=== PATIENT | female | born 1960 | race Two or more races ===

== ENCOUNTER 2016-10-14 19:54 | Inpatient (IN) | payer OTHER ==
[~2016-10-14] VITALS: Ht 160 cm; Wt 83.6 kg
[2016-10-14] VITALS (9 sets, daily range): BP systolic 99–160; BP diastolic 59–73; PULSE 81–102; RESP 13–22; O2SAT 94–100
[~2016-10-14 19:54] MED LIST: AMLO10TA3 PO; ASPI-973 PO; ATEN100T PO; CYCL10TA9 PO; IBUP800T28 PO; LEVO137T2 PO; LIP40 PO; LOSA100T29 PO; METF500T4 PO; Oxycodone Hcl PO; Rocuronium 10 mg/mL 5 mL Inj ONE; Succinylcholine Chloride 20 mg/mL 5 mL Inj ONE
--- NOTE | 2016-10-14 20:03 | ED.REPORT ---
HPI-General Illness Date of Service Oct 14, 2016 ED Provider: Dav Andrade MD Pt is a 56 year old female who presents to the ED with concerns for extensive facial swelling that began around 16:00. She reports difficulty talking and swallowing. Her family member reports her voice sounding different than her baseline. Pt denies taking any new medications, or being exposed to anything that she knows she is allergic to. She reports mild difficulty breathing. Pt reports this happening one other time in the past but never this severe. Nursing Notes Stated Complaint: FACE SWELLING Chief Complaint: Angioedema Nursing Notes Reviewed: Yes General Time Seen by MD: 20:02 Chief Complaint Other (Facial swelling) Hx Obtained From: Patient, Daughter Arrived By: Walk-in Sudden in Onset?: Yes Onset Occurred: Just prior to arrival Symptom Duration: Since onset Location: : Face Quality: Painful Severity: Current: Mild Severity: Maximum: Mild Similar Sx Previous: Yes Past Medical History Ambulatory Status Independent Review of Systems Full Review of Systems Constitutional: Denies: Chills, Fever, Malaise, Weakness - generalized Ears / Nose / Throat: Reports: Throat swelling, Voice change Respiratory: Reports: Shortness of breath, Denies: Wheezing Cardiovascular: Denies: Chest pain, Syncope GI: Denies: Abdominal pain, Nausea, Vomiting Musculoskeletal: Denies: Back pain, Extremity pain, Neck pain Skin: Denies Diaphoresis Allergy / Immune: Reports: Allergic reaction, Anaphylaxis, Hives Neurologic: Denies: Change LOC, Dizziness, Headache, Syncope, Weakness Psychiatric: Denies: Anxiety Complete sys rev & neg: except as marked. Physical Exam Vital Signs Vital Signs Date Time Temp Pulse Resp B/P Pulse Ox O2 Delivery O2 Flow Rate FiO2 10/14/16 21:29 94 10/14/16 21:26 93 22 118/65 100 Mechanical Ventilator 10/14/16 20:43 102 20 160/70 100 Nasal Cannula 2 10/14/16 20:31 93 18 158/73 100 Room Air 10/14/16 20:28 95 13 158/73 100 Nasal Cannula 2 10/14/16 19:56 37.1 95 21 156/59 98 Room Air Initial VS: Reviewed General/Constitutional: Well-developed, Well-nourished Head / Eyes: Atraumatic, Normocephalic, PERRL Neck: Supple, Non-tender, Full range of motion Respiratory: Breath sounds normal, Clear to auscultation, No respiratory distress Cardiovascular: Regular rate & rhythm, Heart sounds normal, Intact distal pulses Abdomen / GI: Soft, Non-tender, No guarding, No rebound, No distention Skin: Warm, Dry, No cyanosis ENT: Mucous membranes moist Marked edema of face and lips Moderate edema of tongue No stridorous Difficulty tolerating secretions Interpretation & Diagnostics Lab Results Interpretation Result Diagram: 10/14/16201410/14/16 2202 Test 10/14/16 20:15 White Blood Count 11.7th/mm3 (3.8-10.1) Red Blood Count 4.99mil/mm3 (3.90-5.20) Hemoglobin 13.4g/dL (12.0-15.6) Hematocrit 40.8% (35.0-46.0) Mean Corpuscular Volume 81.8fL (81-100) Mean Corpuscular Hemoglobin 26.9pg (27.0-35.0) Mean Corpuscular Hemoglobin Concent 32.8% (32.0-37.0) Red Cell Distribution Width 14.2% (12.3-15.4) Platelet Count 293bil/L (150-400) Neutrophils (%) (Auto) 60.9% (40-74) Lymphocytes (%) (Auto) 28.4% (14-46) Monocytes (%) (Auto) 6.0% (4-12) Eosinophils (%) (Auto) 3.8% (0-5) Basophils (%) (Auto) 0.3% (0-3) Hold Purple Top Tube Received (Received) Hold Blue Top Tube Received (Received) Hold [place] Top Tube Received (Received) X-Ray Chest Interpretation Chest Xray Interpretation: IMPRESSION: Bilateral pneumonia, located within the lower lobe on the left than the junction of the middle and upper thirds of the right lung parenchyma. The endotracheal and nasogastric tube positioning appears normal. Dictated by: Pop Ashton M.D. on 10/14/2016 at 21:51 Interpretation / Wet Read by: Interpret - Radiologist Procedures Intubation Intubation Procedure: Anesthesia was at the bedside prior to beginning procedure. Multiple attempts at intubation. Topically numbed with 4% lidocaine jelly. Cords visualized prior to induction with etomidate and succinylcholine. Unable to pass tube on 1st and 2nd attempt. Pt was easy bag mask ventilated, and maintain O2 saturations in the low 90s, during this, she vomited x 2. She was suctioned. Ultimately tubed was passed, visualizing the glottic opening with glide scope, and passing the tube orotracheally over an intubating bronchoscope Time: 20:12 Procedure Performed by: ED physician Consent / Setup / Site Prep: Consent from patient, Time-out performed, Oxygen administered, Pulse oximeter applied, telemetry monitor applied, Hand hygiene observed, Stand sterile technique Patient Position: Sniff position Blade / ET Tube / Route: [place] scope Premedicated: Lidocaine ___ mg Procedural Sedation/Analgesia: Sedation: Etomidate, Analgesia: Fentanyl Neuromuscular Agent: Succinylcholine ET Confirmation: Direct visualization, BS equal, CXR, Rising O2 sat Secured / Marked: Tube marked at ___ cm (23) Complications: Vomiting Post-Procedure: Condition improved, Tolerated procedure well, Patient stable Re-Eval/Medical Decision Med Decision/Clinical Course Pt is a 56 year old female who presents to the ED with concerns for extensive facial swelling that began around 16:00. She reports difficulty talking and swallowing. Her family member reports her voice sounding different than her baseline. Pt denies taking any new medications, or being exposed to anything that she knows she is allergic to. She reports mild difficulty breathing. Pt reports this happening one other time in the past but never this severe. Upon arrival she has marked edema of her face, lips but only mild to moderate edema of her tongue. She was without stridor though does have voice changes and is having difficulty swallowing her secretions. She was immediately placed on continuous cardiac monitoring and pulse oximetry and had good oxygen saturation on room air. She had taken Benadryl prior to arrival and was treated with epinephrine, IV fluids and IV Pepcid as well as steroids. Given the severity of her swelling anesthesia (Dr. Vazquez). We opted to provide topicalization of the oral mucosa using 4% lidocaine gel. There are several attempts she was able to tolerate awake insertion of the kaleidoscope into the oral cavity and we were able to visualize her cords though there was some surrounding edema. Given the progressive nature of her angioedema we opted to induce using etomidate and succinylcholine. Anesthesia was at the bedside and I attempted to intubate her using a 7.t tube which we are unable to pass through the cords due to the extensive edema. We then proceeded to attempt to pass a 6.5 tube, again without success. Patient had momentary transient desaturation to 70% that was easily [id number] ventilated back up to 100% oxygen saturation. At that time her glottic opening was again visualized using the kaleidoscope and we attempted to pass a gum elastic bougie. Due to angle we are unable to insert the bougie. At this time she was again avf-[id number] ventilated though had 2 episodes of emesis requiring suctioning. Again we visualized the glottic opening using kaleidoscope and she was intubated with the assistance of anesthesia using fiberoptic scope and passing a 6.5 endotracheal tube. She had no oxygen desaturation, the tube placement was confirmed by bilateral breath sounds, capynography and CXR. The tube was slightly deep and was pulled back by 1 cm. She was placed on a propofol drip for sedation. CBC and CMP were unremarkable. The patient was admitted to the intensive care unit for further management. Source of Hx: Old records Time of Eval: 21:21 Re-Evaluation/Progress Note: Pt is rechecked, her vitals remain stable. Her daughter is informed of the plan to admit her at this time. She understands and agrees, all questions are addressed. Consultation : Referral / Consult Name: Rey Gudino MD Consulted With: Hospitalist Call Returned at: 21:21 Compliance Review Specialist: Will see patient, Agrees with plan, Accepts admit Counseled Regarding: Diagnosis, Lab results, Need for admission Discharge & Departure Primary Impression: Angioedema Encounter type: initial encounter Qualified Code: T78.3XXA - Angioneurotic edema, initial encounter Additional Impressions: Acute respiratory failure Respiratory failure complication: unspecified whether with hypoxia or hypercapnia Qualified Code: J96.00 - Acute respiratory failure, unspecified whether with hypoxia or hypercapnia Leukocytosis Leukocytosis type: unspecified Qualified Code: D72.829 - Elevated white blood cell count, unspecified Hyperglycemia Disposition: ADMITTED TO HOSPITAL Discharge Condition All VS Reviewed: Yes Condition: Stable Crit Care Except Billable Proc Time Spent: 135-164 minutes Services Performed: Patient management by me, Time spent at bedside, Reviewing test results, Reviewing imaging, Discussing patient care, Documentation in record, Time with fam/surrogate Scribe Attestation Portions of this note were transcribed by Kady Vela. I, Dr. Andrade personally performed the history, physical exam and medical decision-making; I reviewed and confirmed the accuracy of the information in the transcribed note. Signed by: Gricelda Ferguson, 10/14/2016 [Time]. Dav Andrade MD Oct 14, 2016 20:03 CHRISTEN VELA Oct 14, 2016 20:24
[2016-10-14] MEDS ORDERED: Succinylcholine Chloride 20 mg/mL 5 mL Inj IVPUSH ONE (20:10)
[2016-10-14] MEDS ORDERED: Etomidate 2 mg/mL 20 mL Inj IV ONE (20:10)
[2016-10-14] MEDS ORDERED: fentaNYL-PF 50 mCg/mL 2 mL Inj ONE ×2 (20:21→20:25)
[2016-10-14] MEDS ORDERED: Propofol 10,000 mCg/mL 100 mL Inj ONE (20:47)
[2016-10-14] MEDS ORDERED: Lactated Ringer's 1,000 ML IV SCH (21:18)
[2016-10-14] MEDS ORDERED: Alum-Mag Hydrox-Simeth 30 mL Suspension PO PRN (21:25)
[2016-10-14] MEDS ORDERED: Ondansetron 2 mg/mL 2 mL Inj IVPUSH PRN (21:25)
[2016-10-14] MEDS ORDERED: Polyethylene Glycol (PEG) 17 Gm Powder PO PRN (21:25)
[2016-10-14] MEDS ORDERED: Senna-Docusate 8.6-50 mg Tablet PO PRN (21:25)
[2016-10-14] MEDS ORDERED: Acetaminophen IV 1,000 MG in IV Premix 1 EACH IV PRN (21:25)
[2016-10-14 21:28] LABS: BASOPHILS % (AUTO) 0.3 % (0-3); EOSINOPHILS % (AUTO) 3.8 % (0-5); Mean Corpuscular Hemoglobin 26.9 pg (27.0-35.0); Mean Corpuscular Volume 81.8 fL (81-100); NEUTROPHILS % (AUTO) 60.9 % (40-74); Platelet Count 293 bil/L (150-400)
--- NOTE | 2016-10-14 21:53 | DRSVH ---
PROCEDURE: X-RAY CHEST ONE VIEW, PORTABLE ([id number]) INDICATIONS: intubation TECHNIQUE: One view of the chest was acquired. COMPARISON: None. FINDINGS: Surgical changes and devices: Endotracheal tube in normal position, nasogastric tube extends below t he imaging margin at least through the gastric cardia.. Lungs and pleura: No pleural effusions or pneumothorax. Lungs are abnormal with reduced inspiratory volume bilaterally, and linear stranding at the junction of the middle and upper thirds of the right lung and at the lower left lung including behind the heart. Bilateral pneumonia is suspected Mediastinum: Mediastinal contours appear normal. Heart size is normal. Bones and chest wall: No suspicious bony lesions. Overlying soft tissues appear unremarkable. IMPRESSION: Bilateral pneumonia, located within the lower lobe on the left than the junction of the middle and upper thirds of the right lung parenchyma. The endotracheal and nasogastric tube position ing appears normal. Dictated by: Pop Ashton M.D. on 10/14/2016 at 21:51 Approved by: Pop Ashton M.D. on 10/14/2016 at 21:51
[2016-10-14] MEDS ORDERED: MethylprednisoLONE Sodium Succinate 62.5 mg/mL 2 mL Inj IVPUSH ONE (21:55)
--- NOTE | 2016-10-14 21:56 | ABG ---
DateTimeAnalyzed 21:51:00 -_ pH ____7.303 - 7.350 7.450 pCO2 ___49.6__ -mmHg 35.0 45.0 pO2 ___81.7__ -mmHg 69.0 116 HCO3- ___23.8__ -mmol/L 22.0 26.0 ABE ___-2.3__ -mmol/L -2.0 2.0 tHb ___11.4__ -g/dL O2Hb ___92.9__ -% COHb ____0.9__ -% MetHb ____1.1__ -% sO2 ___94.8__ -% FIO2 ___50.0__ -% PEEP ____5.0__ -cmH2O Vt __450.0__ -L Drawn By blf - Date/Time Notified____ 21:56:00 -_ Spontaneous_RR ___21.0__ -b/min A/C ___20.0__ - Oxygen Device 1 VENTILATOR - Notified By BLF - Notified Whom ___DR. LONGSTREET - B 765 -mmHg tO2 ___15.0__ -Vol% Stefan test _Positive -
[2016-10-14] MEDS: 0.9% Sodium Chloride 1,000 ML IV SCH (23:00)
[2016-10-14] MEDS: fentaNYL 2,500 mCg/250 mL 2,500 MCG in IV Premix 1 EACH IV PRN (23:01)
[2016-10-14] MEDS ORDERED: Glucose 40% Oral Gel 15 Gm Tube PO PRN (23:25)
--- NOTE | 2016-10-14 23:28 | PCM.HPMED ---
Subjective Date of Service Oct 14, 2016 Primary Provider: Admitting Physician: Primary Care Physician: Attending Physician: Admit Status: From the Emergency Department, Full Admit, Critical Care Chief Complaint: Facial swelling History of Present Illness: Patricia Liriano is a 56 year old [place]ian female with Diabetes, Dyslipidemia, Hypothyroidism, GERD who presents to [facility] Emergency department with concerns for extensive facial swelling that began around 16:00. She reports difficulty talking and swallowing. Her family member reports her voice sounding different than her baseline. Daughter gave the history. Daughter states the patient every once in awhile would have some swelling due to certain foods that she eats but usually takes a allergy medications and it goes away. Patient took the medications twice, but had no effects. Pt denies taking any new medications, or being exposed to anything that she knows she is allergic to. She reports mild difficulty breathing. Pt reports this happening one other time in the past. Daughter reported patient ate some Oranges and cabbage with some meat inside. Patient has eaten these food before. Patient takes several medications but not on WILLIE inhibitor. Daughter mentioned the patient may have seen a doctor to figure what she is allergic too. Prior prior angioedema requiring hospitalization Patient noted to have respiratory compromise and Dr Andrade recruited the aid of Anesthesia and intubated patient. Patient will be transferred to ICU on the ventilator Review of Systems: unable to be obtained due to sedation while on ventilator support Allergies Coded Allergies: No Known Allergies (Verified Allergy, Unknown, 10/14/16) Home Medications Allergy relief tabs PRN Atorvastatin 40 mg HS Amlodipine 10 mg daily Losartan 100 mg daily Metformin 850 mg bid Levothyroxine 137 mcg daily Atenolol 100 mg daily Aspirin 81 mg daily PMH Transient ischemic attack Acquired hypothyroidism Type 2 Diabetes Dyslipidemia Depression Sleep apnea Hypertension GERD Henderson palsy History of leg thrombosis . Surgical History Breast surgery with no Breast cancer Family History No family history of angioedema Social History Hx Alcohol Use: No Hx Substance Use: No Hx Tobacco Use: No Living Arrangement: with Family (with and daughter) Exam Vital Signs Vital Sign - Last Date Time Temp Pulse Resp B/P Pulse Ox O2 Delivery O2 Flow Rate FiO2 10/14/16 21:29 94 10/14/16 21:26 93 22 118/65 Mechanical Ventilator 10/14/16 20:43 2 10/14/16 19:56 37.1 Exam General: Alert, Oriented X3, Cooperative, No acute Distress Eyes: PERRLA, Scleral Anicteric. swollen Mouth: Mouth Normal, Mucous Membranes Moist/[place]. Lips swollen with ET intact Neck: Supple, no Thyromegaly, trachea central. Chest & Lungs: Clear to auscultation & percussion, No adventitious breath sounds, no crackles, no wheeze Cardiovascular: Normal S1, Normal S2, No Murmurs/Rubs/Gallops, Regular Rate/ Rhythm, (No JVD, no peripheral edema) Pulses: Radial (present and equal), Dorsalis Pedi (present and equal) Abdomen: Soft, Non-tender, Non-distended, Normoactive bowel tones. Musculoskeletal: Unremarkable. Normal range of motion, no swollen or erythematous joints Extremities: No edema, no cyanosis, no clubbing. Skin: No rashes. Warm and dry, no erythematous areas or rashes Neurological: Grossly neurologically intact, sedated Lymphatic: Lymph nodes Cervical and Axillary not palpable Lab and Diagnostics Labs Laboratory Tests Test 10/14/16 20:15 10/14/16 22:02 White Blood Count 11.7th/mm3 (3.8-10.1) Red Blood Count 4.99mil/mm3 (3.90-5.20) Hemoglobin 13.4g/dL (12.0-15.6) Hematocrit 40.8% (35.0-46.0) Mean Corpuscular Volume 81.8fL (81-100) Mean Corpuscular Hemoglobin 26.9pg (27.0-35.0) Mean Corpuscular Hemoglobin Concent 32.8% (32.0-37.0) Red Cell Distribution Width 14.2% (12.3-15.4) Platelet Count 293bil/L (150-400) Neutrophils (%) (Auto) 60.9% (40-74) Lymphocytes (%) (Auto) 28.4% (14-46) Monocytes (%) (Auto) 6.0% (4-12) Eosinophils (%) (Auto) 3.8% (0-5) Basophils (%) (Auto) 0.3% (0-3) Hold Purple Top Tube Received (Received) Hold Blue Top Tube Received (Received) Hold [place] Top Tube Received (Received) Sodium Level 137mEq/L (134-144) Potassium Level 4.3mEq/L (3.5-5.2) Chloride Level 99mEq/L (97-108) Carbon Dioxide Level 23mmol/L (18-29) Blood Urea Nitrogen 17mg/dL (6-24) Creatinine 0.60mg/dL (0.57-1.00) Estimat Glomerular Filtration Rate 148mL/min (>59) Glucose Level 235mg/dL (60-99) Calcium Level 8.8mg/dL (8.5-10.1) Total Bilirubin 0.4mg/dL (0.0-1.2) Aspartate Amino Transf (AST/SGOT) 33U/L (0-50) Alanine Aminotransferase (ALT/SGPT) 32U/L (0-32) Alkaline Phosphatase 70U/L (25-150) Total Protein 7.5g/dL (6.4-8.4) Albumin 4.0g/dL (3.4-5.0) Result Diagram: 10/14/162014 X-Rays, CTs and MRIs X-RAY CHEST ONE VIEW, PORTABLE 10/14/16 IMPRESSION: Bilateral pneumonia, located within the lower lobe on the left than the junction of the middle and upper thirds of the right lung parenchyma. The endotracheal and nasogastric tube positioning appears normal. Dictated by: Pop Ashton M.D. on 10/14/2016 at 21:51 Approved by: Pop Ashton M.D. on 10/14/2016 at 21:51 Assessment & Plan Patricia Liriano is a 56 year old [place]ian female with Diabetes, Dyslipidemia, Hypothyroidism, GERD who presents to [facility] Emergency department with concerns for extensive facial swelling 1. Acute Severe Angioedema with upper airway compromise. Present on admission Etiology of the angioedema is unclear with no exposure to WILLIE inhibitor at this time. Possible the patient has allergic or immunologic angioedema with history of some reactions to some foods. Differential diagnosis includes Acute Urticaria , Anaphylaxis, Drug or food allergies - no prior episode of angioedema - continue steroids: Solu-Medrol 125 mg IV - antihistamine: Benadryl 50 mg IV - remove offending agent - checking C4, MATT, C1 esterase inhibitor levels - recommend allergy testing as outpatient 2. Upper airway compromise due to laryngeal edema. Present on admission Related to complications of the Angioedema - continue ventilator support - Fentanyl and Propofol drip - daily sedation vacation and extubation trials 3. Possible Aspiration pneumonitis. Present on admission Will start antibiotics if patient spikes fever as this indicates pneumonia - monitor closely - Blood cultures 4. Diabetes type 2 - holding Metformin - medium Lispro correction algorithm 5. Hypothyroidism - continue Levothyroxine 137 mcg daily 6. Hypertension - resume Losartan and Atenolol if BP stable tonight - Acetaminophen as needed for mild pain/fever/headache - Bowel regimen as needed - Antiemetic as needed Patient admitted under inpatient status with expected length of stay > 2 midnights for severity of present symptoms, complexities of treatment plan and risk for adverse event . VTE Mechanical Devices: Intermittant Pneumatic CD Resuscitation Status: CPR: Attempt Resuscitation Time spent 1 hour Critical care time spend Rey Gudino MD Oct 14, 2016 21:40
[2016-10-14] MEDS: Propofol Inj 1,000,000 MCG in IV Premix 1 EACH IV SCH (23:40)
[2016-10-15] VITALS (12 sets, daily range): BP systolic 93–131; BP diastolic 47–63; PULSE 58–79; RESP 18–20; O2SAT 96–100
[2016-10-15] MEDS: Chlorhexidine 0.12% 15 mL Oral Solution MT SCH ×6 (00:03→20:06)
--- NOTE | 2016-10-15 00:38 | ABG ---
DateTimeAnalyzed 00:33:00 -_ pH ____7.476 - 7.350 7.450 pCO2 ___31.0__ -mmHg 35.0 45.0 pO2 ___72.9__ -mmHg 69.0 116 HCO3- ___22.6__ -mmol/L 22.0 26.0 ABE ____0.1__ -mmol/L -2.0 2.0 tHb ___11.8__ -g/dL O2Hb ___93.3__ -% COHb ____1.2__ -% MetHb ____1.1__ -% sO2 ___95.5__ -% FIO2 ___40.0__ -% Drawn By LT - Date/Time Notified____ 00:38:00 -_ Notified By LT - Notified Whom RN - B 764 -mmHg tO2 ___15.5__ -Vol% Stefan test _Positive -
[2016-10-15] MEDS ORDERED: CORTISPORIN RIGHT_EAR (01:04)
[2016-10-15] MEDS ORDERED: ATEN100T PO (01:04)
[2016-10-15] MEDS ORDERED: AMLO10TA3 PO (01:04)
[2016-10-15] MEDS ORDERED: LIP40 PO (01:04)
[2016-10-15] MEDS ORDERED: LOSA100T29 PO (01:04)
[2016-10-15] MEDS ORDERED: [UNRECOGNIZED DRUG - CODE] PO (01:04)
[2016-10-15] MEDS ORDERED: ASPI-973 PO (01:04)
[2016-10-15] MEDS ORDERED: METF850T2 PO (01:04)
[2016-10-15] MEDS ORDERED: CLOT45CR7 TOPICAL (01:04)
[2016-10-15] MEDS ORDERED: LEVO137T2 PO (01:04)
--- NOTE | 2016-10-15 01:43 | NUR ---
CCU Admission Admitted patient from ED @ 2235 for angioedema, arrived intubated w/ propofol gtt @ 35 mcg/kg/min, RASS +1, Pt has swelling to face, neck, tongue and bilateral hands, rt hand w/ rashes. Started fentanyl gtt and NS IVF @ 125 cc/hr, MAP>60, sbp 90-100's, frank draining with adequate urine output. Given benadryl 50 mg IV and solumedrol 125 mg IV. MRSA nasal screen sent, daughter at bedside updated of POC
[2016-10-15] MEDS: Propofol Inj 1,000,000 MCG in IV Premix 1 EACH IV SCH ×5 (03:08→21:30)
--- NOTE | 2016-10-15 04:42 | NUR ---
Respiratory RASS -3 resting, on propofol and fentanyl gtt, with any activity RASS +1, pt reaching for ett, bolused with 5cc propofol, sp02 >96%. Face, neck and tongue remain swollen. bilateral soft wrist restraints on
[2016-10-15] MEDS: 0.9% Sodium Chloride 1,000 ML IV SCH ×3 (05:22→20:07)
--- NOTE | 2016-10-15 06:59 | PROCED ---
[address] [address] PROCEDURE NOTE PATIENT: MAI CASPER : 1960 MR#: [id number] ADMIT: 10/14/2016 JOB ID: [id number] DATE OF SERVICE: 10/14/2016 PROCEDURE: Emergent intubation. PREOPERATIVE DIAGNOSIS(ES): Angioedema. POSTOPERATIVE DIAGNOSIS(ES): Angioedema. SURGEON: PROCEDURE IN DETAIL: I was called emergently to the emergency department by my partner, Dr. Denilson Vazquez, who was assisting with an emergency intubation on the patient, who was suffering from angioedema and respiratory failure. When I arrived to the room, Dr. Andrade, the emergency department attending physician, had just given succinylcholine and was looking with the GlideScope. He had a grade 3 view on GlideScope and was unable to pass endotracheal tube under GlideScope visualization. Patient was bag-mask ventilated, and during this time vomited, requiring suction. An additional dose of succinylcholine was given after bag-mask ventilation. Dr. Andrade attempted a second GlideScope intubation in my presence with attempted assistance of passing a bougie through the vocal cords. Unfortunately, the bougie was unable to be passed through the vocal cords. He, again, withdrew GlideScope and bag-mask ventilated. The patient again vomited, requiring suction. Her sats remained in the 90s and high 80s during the second intubation attempt in my presence. For the third attempt, Dr. Andrade placed the GlideScope into the patient's mouth after bag-mask ventilation and a sat of 97%. I then passed a fiberoptic scope under GlideScope visualization through the vocal cords. A 6.5 endotracheal tube was advanced over the fiberoptic scope. The cuff was inflated and the endotracheal tube was attached to colorimetric CO2 detection, confirming appropriate placement. The patient was then sedated per Dr. Andrade's guidelines.
--- NOTE | 2016-10-15 07:00 | PROCED ---
[address] [address] PROCEDURE NOTE PATIENT: MAI CASPER : 1960 MR#: [id number] ADMIT: 10/14/2016 JOB ID: [id number] DATE OF SERVICE: PROCEDURE: Assistance with intubation. POSTOPERATIVE DIAGNOSIS(ES): Angioedema. PREOPERATIVE DIAGNOSIS(ES): Angioedema. SURGEON: PROCEDURE: I was called by Dr. Andrade to assist with intubating a patient with angioedema. Upon entering the room, I saw what appeared to be a morbidly obese woman, with a large neck circumference, resting comfortably. Nasal cannula sats at 97%.The patient was asked to open her mouth and Dr. Andrade assessed her airway with the GlideScope. The patient tolerated this poorly, so I sprayed a total of 8 mL of 4% lidocaine in the oropharynx. I also gave 0.2 mL of glycopyrrolate. I then attempted to place a #3 GlideScope which the patient did not tolerate. Fentanyl 200 mcg were given and this was reattempted, which the patient tolerated much better. I was not able to visualize the patient's vocal cords, although the GlideScope was fully deployed. I then returned with my fiberoptic intubating scope and placed this in the patient's oropharynx, but I was unable to visualize the vocal cords due to significant edema at this point. I left the room to call my partner, Dr. Ugalde, the OB anesthesiologist, to come into the emergency department to help me. Upon returning to the room, Dr. Andrade was attempting to intubate the patient, who at this point was sedated with succinylcholine on board. I observed Dr. Andrade attempt intubation twice, and by the third attempt my partner, Dr. Ugalde, arrived, who offered to use the Fiber Optic scope to intubate the patient while Dr. Andrade deployed the GlideScope. Dr. Ugalde intubated the patient on his first attempt. CO2 was observed. The patient's saturations were in the high 90%. Breath sounds are confirmed bilaterally. MTDD
[2016-10-15 07:29] LABS: BASOPHILS % (AUTO) 0.1 % (0-3); EOSINOPHILS % (AUTO) 0.1 % (0-5); MONOCYTES % (AUTO) 3.3 % (4-12); Mean Corpuscular Hemoglobin 26.9 pg (27.0-35.0); Mean Corpuscular Volume 81.1 fL (81-100); NEUTROPHILS % (AUTO) 86.4 % (40-74); Platelet Count 200 bil/L (150-400)
[2016-10-15] MEDS ORDERED: Insulin LISPRO 300 Unit/3 mL Inj SUBQ SCH (08:00)
[2016-10-15] MEDS ORDERED: Insulin Human REGular Inj 100 UNIT in 0.9% Sodium Chloride-Pha MIX 100 ML IV SCH (08:12)
[2016-10-15] MEDS ORDERED: MethylprednisoLONE Sodium Succinate 40 mg/mL Inj IVPUSH SCH (08:30)
[2016-10-15] MEDS: Dextrose 5% Lactated Ringer's 1,000 ML IV SCH ×2 (09:14→18:03)
[2016-10-15] MEDS: Heparin 5,000 Unit/mL Inj SUBQ SCH ×2 (09:16→16:07)
[2016-10-15] MEDS: MethylprednisoLONE Sodium Succinate 62.5 mg/mL 2 mL Inj IVPUSH SCH ×2 (09:52→16:07)
[2016-10-15] MEDS: Famotidine Inj 20 MG in IV Premix 1 EACH IV SCH ×2 (09:52→20:17)
--- NOTE | 2016-10-15 10:36 | NUR ---
NUTRITION ASSESSMENT Assess: 56 YO F admitted to CCU for angioedema requiring intubation. Possible allergic reaction. PMHX: TIA, hypothyroid, type 2 DM, dyslipidemia, Wolf's palsy, depression, sleep apnea, HTN, GERD. DIET: NPO. LABS: Glu 289 MEDICATIONS: Reviewed. Propofol, Fentanyl, Solu-medrol. GI: No BM noted. SKIN: Wound eval pending. WEIGHT: 87.0 kg, BMI 34.0 kg/m2. Admit wt: 86.6 kg ESTIMATED NEEDS: VENT/BMI Calories: 2465-2819 kcal/day (20-22 kcal/kg BW) Protein: 78-94 g/day (1.5-1.8 g/kg IBW) NUTRITION DIAGNOSIS: 1) Inadequate oral intake related to decreased ability to consume sufficient energy as evidenced by NPO/Vent status. INTERVENTION: 1) If pt remains intubated recommend initiation of nutrition support in the next 24-48 hours. MONITOR/EVALUATE: NPO/Vent status, labs, nutrition support, GI/nutrition status. Follow per high nutrition risk guidelines.
[2016-10-15] MEDS: Insulin Human REGular Inj 100 UNIT in 0.9% Sodium Chloride-Pha MIX 100 ML IV SCH (10:38)
[2016-10-15] MEDS: fentaNYL 2,500 mCg/250 mL 2,500 MCG in IV Premix 1 EACH IV PRN (10:42)
--- NOTE | 2016-10-15 10:48 | CONS ---
[address] [address] CONSULTATION REPORT PATIENT: MAI CASPER : 1960 MR#: [id number] ADMIT: 10/14/2016 JOB ID: [id number] DATE OF SERVICE: 10/15/2016 REASON FOR CONSULTATION: Respiratory failure due to upper airway obstruction. REQUESTING SERVICE: Hospitalist service. HISTORY OF PRESENT ILLNESS: The patient is a morbidly obese, 56-year-old, who presented to [facility] emergency department complaining of several hours of increasing oral and facial edema. She is described as being free of respiratory distress upon presentation, but at some point during her emergency department stay, she required intubation for stabilization of her airway. This appears to have been a difficult procedure, requiring multiple attempts and involving the assistance of Anesthesiology. Her is at the bedside and provides some of the history. The patient has, for two years, had sporadic episodes of mild facial swelling occurring randomly. Most of the episodes appear to have followed some oral intake. Yesterday, she had finished a meal involving citrus and stuffed cabbage leaves with pork. She developed swelling of her lips, tongue and neck. She came to the emergency department and the above events transpired, resulting in her being intubated and admitted to the critical care unit for further care. The patient herself is unable to provide any further information. There have been no new medications prescribed within the last several years. Her use of blsb-yig-nrippdy medications or homeopathic/natural remedies is unclear at this point. There is no family history of anaphylaxis or angioedema. PAST MEDICAL HISTORY: 1. Diabetes. 2. Hypertension. 3. Hypothyroidism. 4. Sleep apnea. 5. History of DVT. 6. Wolf's palsy. 7. History of gastroesophageal reflux disease. 8. History of depression. 9. Dyslipidemia. 10. Prior history of TIA. OUTPATIENT MEDICATIONS: Include: 1. "Allergy medicine". 2. Atorvastatin 40 mg at bedtime. 3. Amlodipine 10 mg p.o. daily. 4. Losartan 100 mg p.o. daily. 5. Metformin 850 mg p.o. b.i.d. 6. Levothyroxine 137 mcg daily. 7. Atenolol 100 mg daily. 8. Aspirin 81 mg daily. SOCIAL HISTORY: She lives with her . FAMILY HISTORY: Noncontributory. REVIEW OF SYSTEMS: Not obtainable as the patient is intubated and sedated. PHYSICAL EXAM: This is a morbidly obese woman who is orotracheally intubated with a 6.5 endotracheal tube. Sedated on ventilation. Her blood pressure is 100/60. Her heart rate is 70. Respirations are 18. O2 saturation is 100% on FiO2 of 0.4. HEENT exam: Gaze appears conjugate. Pupils are equal at 4 mm. Conjunctivae not injected. Sclerae anicteric. The face appears symmetric. She has edema of the lower lip. The tongue does not protrude. Visible oral mucosa is free of ulcerations and exudates. The trachea is midline. There is firm symmetric induration involving the entire submandibular region and bilateral anterior neck. There is no fluctuance or overlying erythema. The chest shows slightly decreased air movement in all shields without wheezes, rale, rhonchi, or egophony. Cardiac exam shows a regular rhythm with normal S1, S2. No murmur, gallop or rub. Abdomen is soft. Bowel tones are absent. There is no obvious tenderness or organomegaly. Extremities: She has trace edema of the dorsum of both hands, right greater than left. Lower extremities show trace edema at both ankles. Pulses are 1+ at both wrists and ankles. Skin: She has confluent erythema over the dorsum of the right hand. There is no truncal rash or other erythema involving other extremities. DATA BASE: Per the electronic medical record, CBC shows a hemoglobin of 11, hematocrit of 33.5, WBC of 9.7, and 200,000 platelets. Eosinophil percent 3.8 on admission, with normal basophils. Chest x-ray shows endotracheal tube in good position with patchy bibasilar infiltrates, right greater than left. Chemistry showed sodium 138, potassium 4.5, chloride of 103, total CO2 of 22, BUN of 19, creatinine of 0.64, random glucose of 289, total protein of 6.3. IMPRESSION: 1. Angioedema/anaphylactoid reaction. It is not clear that this is a histamine mediated process given her lack of clear history of pruritus associated with earlier episodes. A serum tryptase level drawn on presentation might have been helpful, but I do not think it would add anything at this point in time. A total IgE level should be obtained along with the complement studies already ordered. We need to obtain more information from the patient's family regarding her use of yffj-nqx-zzplzxy medications, including nonsteroidal anti-inflammatory drugs and others. She should continue to receive scheduled corticosteroids and antihistamine agents. I do not see any need at present for continued epinephrine, although I would start this if she became hypotensive or developed progressive edema on exam. Her airway currently is still compromised to the point I do not think it is safe to extubate her. Given the difficulty encountered at time of intubation, it might be mahmood to extubate her over an airway exchanger and/or with the bedside presence of Anesthesiology to aid in re-intubation if it is required. 2. Poorly controlled diabetes mellitus. This will only worsen with her large doses of steroids that she requires. An insulin drip should be started. RECOMMENDATIONS: 1. Solu-Medrol 60 mg IV q.6 h. 2. Famotidine 20 mg IV q.12 h. 3. Diphenhydramine 25 mg IV q.6 h. 4. Serial airway exams with leak test to assess readiness for vent liberation. 5. Consider use of airway exchange catheter and presence of Anesthesia at the time of extubation. 6. Insulin infusion targeting blood glucose less than 180. 7. Routine ICU prophylaxis with subcutaneous unfractionated heparin. 8. Total IgE level and serial laboratories. MTDD
--- NOTE | 2016-10-15 11:34 | NUR ---
Cardiac/GI SB/SR per monitor worker. Fidencio gtt off. Normotensive, 130/63. Denies pain. Bowel sounds throughout, denies flatus. Cleared for oral intake by ST. Surgery agreed to pills with sips of H20. With the exception of medications, pt to remains npo until bowel fxn returns. Dr Bowden updated on changes in cardiac status, no new orders at this time. Addendum: 10/15/16 at 1142 by DOMINGUEZ MARKS RN Entry error
[2016-10-15 11:43] LABS: APPEARANCE,URINE HAZY (CLEAR,HAZY); COLOR,URINE STRAW (YELLOW); OCCULT BLOOD,URINE NEGATIVE (NEGATIVE); PH,URINE 5.5 (5.0-8.0)
[2016-10-15 11:45] LABS: UROBILINOGEN,URINE NORMAL (NORMAL)
--- NOTE | 2016-10-15 15:14 | NUR ---
Wound Care Pressure injury protocol received, spoke with nursing, no skin issues related to pressure at this point. Pt intubated and on CCU bed, heels are floated, hands/forearms are elevated on pillows for edema control.
--- NOTE | 2016-10-15 15:19 | PCM.PNMED ---
Subjective Date of Service Oct 15, 2016 Subjective Patricia Liriano is a 56 year old [place] female with Diabetes, Dyslipidemia, Hypothyroidism, GERD admitted to [facility] for treatment of department extensive facial swelling and respiratory failure requiring intubation 10/14/16. Hospital Day 2 Overnight: Nursing reports no overnight events. Today: patient is sedated and intubated. is present he reports that patient has had two prior episodes of facial swelling in relation to food, controlled by taking Benadryl. Patient has been working with outpatient PCP to determent cause of allergy without identified cause to date. ROS unobtainable due to patient being intubated. Exam Vital Signs Vital Sign - Last Date Time Temp Pulse Resp B/P Pulse Ox O2 Delivery O2 Flow Rate FiO2 10/15/16 04:20 74 109/53 96 40 10/15/16 03:46 36.9 18 Mechanical Ventilator 10/14/16 20:43 2 Intake and Output 10/14/16 10/14/16 10/15/16 Cumulative From/Thru 15:00 23:00 07:00 10/14/16 19:56 - 10/15/16 05:23 Intake Total 1000 ml 1044 ml 2044 ml Output Total 850 ml 850 ml Balance 1000 ml 194 ml 1194 ml Intake Oral 0 ml 0 ml IV Total 1000 ml 1044 ml 2044 ml Output Urine Total 650 ml 650 ml Gastric Drainage Total 200 ml 200 ml Exam General: Sedated and intubated, Cooperative, No acute Distress Eyes: PERRLA, Scleral Anicteric. Swollen Eyelids Mouth: Mouth Normal, Mucous Membranes Moist/[place]. Lips swollen with ET intact Neck: Supple, Significant edema, no Thyromegaly, trachea central. Chest & Lungs: Clear to auscultation & percussion, No adventitious breath sounds, no crackles, no wheeze Cardiovascular: Normal S1, Normal S2, No Murmurs/Rubs/Gallops, Regular Rate/ Rhythm, (No JVD, no peripheral edema) Pulses: Radial (present and equal), Dorsalis Pedi (present and equal) Abdomen: Soft, Non-tender, Non-distended, Normoactive bowel tones. Musculoskeletal: Unremarkable. Normal range of motion, no swollen or erythematous joints Extremities: No edema, no cyanosis, no clubbing. Skin: No rashes. Warm and dry, no erythematous areas or rashes Neurological: Grossly neurologically intact, sedated Lymphatic: Lymph nodes Cervical and Axillary not palpable IVs and Medications Medications Reviewed: Medications were reviewed in detail Lab and Diagnostics ABG 10/15/18 pH ____7.476 - 7.350 7.450 pCO2 ___31.0__ -mmHg 35.0 45.0 pO2 ___72.9__ -mmHg 69.0 116 HCO3- ___22.6__ -mmol/L 22.0 26.0 ABE ____0.1__ -mmol/L -2.0 2.0 Laboratory Tests Test 10/14/16 20:15 10/14/16 22:02 10/15/16 07:04 10/15/16 07:32 White Blood Count 11.7th/mm3 (3.8-10.1) 9.7th/mm3 (3.8-10.1) Red Blood Count 4.99mil/mm3 (3.90-5.20) 4.13mil/mm3 (3.90-5.20) Hemoglobin 13.4g/dL (12.0-15.6) 11.1g/dL (12.0-15.6) Hematocrit 40.8% (35.0-46.0) 33.5% (35.0-46.0) Mean Corpuscular Volume 81.8fL (81-100) 81.1fL (81-100) Mean Corpuscular Hemoglobin 26.9pg (27.0-35.0) 26.9pg (27.0-35.0) Mean Corpuscular Hemoglobin Concent 32.8% (32.0-37.0) 33.1% (32.0-37.0) Red Cell Distribution Width 14.2% (12.3-15.4) 13.9% (12.3-15.4) Platelet Count 293bil/L (150-400) 200bil/L (150-400) Neutrophils (%) (Auto) 60.9% (40-74) 86.4% (40-74) Lymphocytes (%) (Auto) 28.4% (14-46) 9.9% (14-46) Monocytes (%) (Auto) 6.0% (4-12) 3.3% (4-12) Eosinophils (%) (Auto) 3.8% (0-5) 0.1% (0-5) Basophils (%) (Auto) 0.3% (0-3) 0.1% (0-3) Hold Purple Top Tube Received (Received) Hold Blue Top Tube Received (Received) Hold [place] Top Tube Received (Received) Sodium Level 137mEq/L (134-144) 138mEq/L (134-144) Potassium Level 4.3mEq/L (3.5-5.2) 4.5mEq/L (3.5-5.2) Chloride Level 99mEq/L (97-108) 103mEq/L (97-108) Carbon Dioxide Level 23mmol/L (18-29) 20mmol/L (18-29) Blood Urea Nitrogen 17mg/dL (6-24) 19mg/dL (6-24) Creatinine 0.60mg/dL (0.57-1.00) 0.64mg/dL (0.57-1.00) Estimat Glomerular Filtration Rate 148mL/min (>59) 137mL/min (>59) Glucose Level 235mg/dL (60-99) 289mg/dL (60-99) Calcium Level 8.8mg/dL (8.5-10.1) 8.6mg/dL (8.5-10.1) Total Bilirubin 0.4mg/dL (0.0-1.2) 0.4mg/dL (0.0-1.2) Aspartate Amino Transf (AST/SGOT) 33U/L (0-50) 20U/L (0-50) Alanine Aminotransferase (ALT/SGPT) 32U/L (0-32) 25U/L (0-32) Alkaline Phosphatase 70U/L (25-150) 53U/L (25-150) Total Protein 7.5g/dL (6.4-8.4) 6.3g/dL (6.4-8.4) Albumin 4.0g/dL (3.4-5.0) 3.6g/dL (3.4-5.0) Procalcitonin 0.26ng/mL (See Comment) Thyroid Stimulating Hormone (TSH) 0.328uIU/mL (0.450-4.500) Urine Color Straw (YELLOW) Urine Appearance Hazy (CLEAR,HAZY) Urine pH 5.5 (5.0-8.0) Urine Specific [place] 1.020 (1.003-1.035) Urine Protein Negativemg/dL (NEG,TRACE) Urine Glucose (UA) Negativemg/dL (NEGATIVE) Urine Ketones 15mg/dL (NEGATIVE) Urine Occult Blood Negative (NEGATIVE) Urine Nitrite Negative (NEGATIVE) Urine Bilirubin Negative (NEGATIVE) Urine Urobilinogen Normalmg/dL (NORMAL) Urine Leukocyte Esterase Negative (NEGATIVE) Urine RBC 0-2/hpf (0-2) Urine WBC 0-5/hpf (0-5) Urine Epithelial Cells Occasional/hpf (NONE-MOD) Urine Crystals Ammonium biurates (NONE Urine Bacteria None/hpf (NONE-FEW) Urine Hyaline Casts None/lpf (NONE) Urine Granular Casts None seen (NONE SEEN) Urine Waxy Casts None seen (NONE SEEN) Urine Red Blood Cell Casts None seen (NONE SEEN) Urine White Blood Cell Casts None seen (NONE SEEN) Urine Mucus None seen (None Seen) Urine Trichomonas None seen (NONE SEEN) Urine Yeast None (NONE SEEN) Urinalysis Comment None Urine Culture Reflexed Not indicated Microbiology 10/15/16 Blood Culture, Received Pending 10/14/16 MRSA Screen, Received Pending Result Diagram: 10/14/16201410/14/161 X-Rays, CTs and MRIs X-RAY CHEST ONE VIEW, PORTABLE 10/14/16 IMPRESSION: Bilateral pneumonia, located within the lower lobe on the left than the junction of the middle and upper thirds of the right lung parenchyma. The endotracheal and nasogastric tube positioning appears normal. Dictated by: Pop Ashton M.D. on 10/14/2016 at 21:51 Approved by: Pop Ashton M.D. on 10/14/2016 at 21:51 Assessment & Plan Patricia Liriano is a 56 year old [place] female with Diabetes, Dyslipidemia, Hypothyroidism, GERD admitted to [facility] for treatment of respiratory failure secondary to extensive facial swelling. Hospital Day 2 1. Acute Severe Angioedema with upper airway compromise. Present on admission Etiology of the angioedema is unclear with no exposure to WILLIE inhibitor at this time. Possible the patient has allergic or immunologic angioedema with history of some reactions to some foods. Differential diagnosis includes Acute Urticaria , Anaphylaxis, Drug or food allergies - Two prior episode of angioedema, controlled with Benadryl - continue steroids: Solu-Medrol 125 mg IV Q8 - antihistamine: Benadryl 50 mg IV Q8 - checking C4, MATT, C1 esterase inhibitor levels - recommend allergy testing as outpatient - Check TSH - Start Pepcid 20 mg IV push QD 2. Upper airway compromise due to laryngeal edema. Present on admission - continue ventilator support - Fentanyl and Propofol drip - daily sedation vacation and extubation trials 3. Possible Aspiration pneumonitis. Present on admission Will start antibiotics if patient spikes fever as this indicates pneumonia - monitor closely - Blood cultures -Check Procalcitonin x2 - Repeat CXR tomorrow AM 4. Diabetes type 2 - holding Metformin - medium Lispro correction algorithm 5. Hypothyroidism - continue Levothyroxine 137 mcg daily 6. Hypertension - resume Losartan and Atenolol if BP stable tonight - Acetaminophen as needed for mild pain/fever/headache - Bowel regimen as needed - Antiemetic as needed Patient admitted under inpatient status with expected length of stay > 2 midnights for severity of present symptoms, complexities of treatment plan and risk for adverse event . VTE Mechanical Devices: Intermittant Pneumatic CD Resuscitation Status: CPR: Attempt Resuscitation Attending Statement The patient was seen and examined together with Dr. Ríos on 10-15-16 and I agree with the history, exam and plan as outlined in the note above. TAMMIE RÍOS DO Oct 15, 2016 06:51 Shahram Justice MD Oct 16, 2016 14:13
--- NOTE | 2016-10-15 16:30 | NUR ---
Respiratory/Cardiac/neuro Continues on PRVC with 40% fi02. No significant change noted in facial and neck edema. RT noted air leak this afternoon, balloon pressures adjusted. Fine rash to right hand unchanged. Normotensive. SR per cardiac cath lab radiology technologist. Afebrile. Insulin gtt continued. Pt awakens easily to voice. Following commands. Denies pain. Will continue to monitor.
[2016-10-15] MEDS ORDERED: FAMOTIDINE IV SCH (20:30)
[2016-10-15] MEDS ORDERED: DEXTROSE 5% IV SCH (20:30)
[2016-10-16] VITALS (10 sets, daily range): BP systolic 133–152; BP diastolic 57–71; PULSE 62–91; RESP 12–26; O2SAT 97–100
[2016-10-16] MEDS: Chlorhexidine 0.12% 15 mL Oral Solution MT SCH ×6 (01:10→20:30)
[2016-10-16] MEDS: MethylprednisoLONE Sodium Succinate 62.5 mg/mL 2 mL Inj IVPUSH SCH ×2 (01:14→07:47)
[2016-10-16] MEDS: Heparin 5,000 Unit/mL Inj SUBQ SCH ×3 (01:14→16:45)
[2016-10-16] MEDS: Propofol Inj 1,000,000 MCG in IV Premix 1 EACH IV SCH ×2 (03:08→11:48)
[2016-10-16] MEDS: Dextrose 5% Lactated Ringer's 1,000 ML IV SCH ×2 (03:48→15:09)
[2016-10-16] MEDS: 0.9% Sodium Chloride 1,000 ML IV SCH ×3 (03:48→21:23)
[2016-10-16 04:15] LABS: BASOPHILS % (AUTO) 0.1 % (0-3); EOSINOPHILS % (AUTO) 0 % (0-5); MONOCYTES % (AUTO) 3.8 % (4-12); Mean Corpuscular Hemoglobin 26.8 pg (27.0-35.0); Mean Corpuscular Volume 79.8 fL (81-100); Platelet Count 226 bil/L (150-400)
[2016-10-16] MEDS: Famotidine Inj 20 MG in IV Premix 1 EACH IV SCH ×2 (07:47→20:32)
[2016-10-16] MEDS: fentaNYL 2,500 mCg/250 mL 2,500 MCG in IV Premix 1 EACH IV PRN (08:25)
[2016-10-16] MEDS: Insulin Human REGular Inj 100 UNIT in 0.9% Sodium Chloride-Pha MIX 100 ML IV SCH (09:06)
--- NOTE | 2016-10-16 09:55 | DRSVH ---
PROCEDURE: X-RAY CHEST ONE VIEW, PORTABLE ([id number]) INDICATIONS: respiratory distress, intubated TECHNIQUE: One view of the chest was acquired. COMPARISON: [facility], CR, XR CHEST 1VW (PORTABLE), 10/14/2016, 21:17. FINDINGS: Surgical changes and devices: Endotracheal tube tip projected 4.5 cm above the lázaro. Nasogastric t ube tip traverses the GE junction. Right axillary surgical clips. Lungs and pleura: Persistent bibasilar patchy airspace opacities are present, slightly increased. r space opacity within the right upper lobe has nearly resolved. No pneumothorax. Mediastinum: Mediastinal contours appear normal. Heart size is normal. Bones and chest wall: No suspicious bony lesions. Overlying soft tissues appear unremarkable. IMPRESSION: 1. Persistent bibasilar airspace opacities suggestive of pneumonia and/or atelectasis increased from prior exam. Dictated by: Brandt PERSON Interpreted: Graciela Howard MD on 10/16/2016 at 9:55 Transcribed by: KRUNAL on 10/16/2016 at 9:55 Approved by: Graciela Howard M.D. on 10/16/2016 at 16:15
--- NOTE | 2016-10-16 10:13 | PCM.PNMED ---
Subjective Date of Service Oct 16, 2016 Subjective PULMONARY PROGRESS NOTE Overnight: No acute events reported Today: Decreased sedation. Improved mentation. Able to follow commands and respond to yes/no questioning. Denied any chest pain, neck pain, trouble breathing, generalized pain. Acknowledged that it will be a slow/cautious process in extubation. Family present at bedside; all questions and concerns addressed. Exam Vital Signs Vital Sign - Last Date Time Temp Pulse Resp B/P Pulse Ox O2 Delivery O2 Flow Rate FiO2 10/16/16 08:00 37.1 65 18 143/65 99 Mechanical Ventilator 40 10/14/16 20:43 2 Intake and Output 10/15/16 10/15/16 10/16/16 Cumulative From/Thru 15:00 23:00 07:00 10/14/16 19:56 - 10/16/16 06:30 Intake Total 1691 ml 1636 ml 5371 ml Output Total 600 ml 475 ml 1925 ml Balance 1091 ml 1161 ml 3446 ml Intake Oral 0 ml IV Total 1691 ml 1636 ml 5371 ml Output Urine Total 475 ml 450 ml 1575 ml Gastric Drainage Total 125 ml 25 ml 350 ml Exam General: Alert, responsive; able to respond to questioning HENT: Atraumatic; sclera anicteric; ETT in place, mucus membranes moist Neck: Reduction in size compared to previous; mildly firm but much improved, nontender; no tenderness with slight ROM Cardiac: Regular rate and rhythm; no murmurs appreciated Respiratory: Adequate air flow all shields; no crackles or wheeze appreciated Abdomen: Soft, nontender, nondistended Extremities: BLLE without edema; BLUE trace pitting edema noted distal extremities to forearm; soft restraints BLUE in place : Jensen in place; urine yellow Neuro: Unable to fully assess secondary to ETT and sedation; appropriately responds to yes/no questioning Psych: Unable to assess at this time Lab and Diagnostics Result Diagram: 10/16/16 0329 10/16/169 X-Rays, CTs and MRIs X-RAY CHEST ONE VIEW, PORTABLE 10/14/16 IMPRESSION: Bilateral pneumonia, located within the lower lobe on the left than the junction of the middle and upper thirds of the right lung parenchyma. The endotracheal and nasogastric tube positioning appears normal. Dictated by: Pop Ashton M.D. on 10/14/2016 at 21:51 Approved by: Pop Ashton M.D. on 10/14/2016 at 21:51 Assessment & Plan PULMONARY PROGRESS NOTE Assessments: - Acute respiratory failure secondary to angioedema - Angioedema secondary to anaphylactic reaction to unknown substance Plan: - Continue to decrease sedation as tolerated to prepare for SBT - Cautious approach to extubation - When time is appropriate for extubation, consideration of having anesthesia present - Recommend continuing steroids: Solu-Medrol 40mg IV q8h; anticipate DC next 1- 2 days - Recommend continuing benadryl 25mg IV q6h; anticipate DC next 1-2 days, pending improvements - Swallow eval post-extubation At [place], recommend patient have follow up appointment with PCP, and lawn care specialist. Recommend daily antihistamine, such as Zyrtec, twice daily. Also recommend she receive Rx benadryl 25mg po tabs, prednisone 40mg po tabs, and epi -pen if covered by insurance; prednisone 40mg x1 + benadryl 50mg at onset of allergic reaction; epi-pen to be utilized for any sign of respiratory compromise , with prompt call to 9-1-1. These medications should be carried at all times. Recommend outpatient follow up with allergy/immunology specialists as soon as available, in addition to PCP hospital FU appt. Thank you for this interesting consult, we will happily follow along with you. Total time: 60 minutes VTE Mechanical Devices: Intermittant Pneumatic CD Resuscitation Status: CPR: Attempt Resuscitation Ninfa Lala DO Oct 16, 2016 10:13
--- NOTE | 2016-10-16 11:24 | PCM.PNMED ---
Subjective Date of Service Oct 16, 2016 Subjective Patricia Liriano is a 56 year old [place] female with Diabetes, Dyslipidemia, Hypothyroidism, GERD admitted to [facility] for treatment of department extensive facial swelling and respiratory failure requiring intubation 10/14/16. Hospital Day 3 Overnight: Per nursing note "Continues on PRVC with 40% fi02. No significant change noted in facial and neck edema. RT noted air leak this afternoon, balloon pressures adjusted. Fine rash to right hand unchanged. Normotensive. SR per photographic editor. Afebrile. Insulin gtt continued. Pt awakens easily to voice. Following commands. Denies pain. Will continue to monitor." Today: Patient is awake laying supine, intubated. She is able to communicate by shaking her head to yes and no statements. Patient denies pain, fever, chills. ROS Limited due to patient being intubated. Exam Vital Signs Vital Sign - Last Date Time Temp Pulse Resp B/P Pulse Ox O2 Delivery O2 Flow Rate FiO2 10/16/16 04:32 64 140/61 99 40 10/16/16 04:30 Ventilator 10/16/16 04:30 37.2 18 10/14/16 20:43 2 Intake and Output 10/15/16 10/15/16 10/16/16 Cumulative From/Thru 14:59 22:59 06:59 10/14/16 19:56 - 10/16/16 06:30 Intake Total 1691 ml 1636 ml 5371 ml Output Total 600 ml 475 ml 1925 ml Balance 1091 ml 1161 ml 3446 ml Intake Oral 0 ml IV Total 1691 ml 1636 ml 5371 ml Output Urine Total 475 ml 450 ml 1575 ml Gastric Drainage Total 125 ml 25 ml 350 ml Exam General: Sedated and intubated, Cooperative, No acute Distress Eyes: PERRLA, Scleral Anicteric. Swollen Eyelids Mouth: Mouth Normal, Mucous Membranes Moist/[place]. Lips swollen with ET intact Neck: Supple, Significant edema, no Thyromegaly, trachea central. Edema of neck improved from yesterday. Chest & Lungs: Clear to auscultation & percussion, No adventitious breath sounds, no crackles, no wheeze Cardiovascular: Normal S1, Normal S2, No Murmurs/Rubs/Gallops, Regular Rate/ Rhythm, (No JVD, no peripheral edema) Pulses: Radial (present and equal), Dorsalis Pedi (present and equal) Abdomen: Soft, Non-tender, Non-distended, Normoactive bowel tones. Musculoskeletal: Unremarkable. Normal range of motion, no swollen or erythematous joints Extremities: No edema, no cyanosis, no clubbing. Skin: No rashes. Warm and dry, no erythematous areas or rashes Neurological: Grossly neurologically intact, sedated Lymphatic: Lymph nodes Cervical and Axillary not palpable IVs and Medications Medications Reviewed: Medications were reviewed in detail Lab and Diagnostics Result Diagram: 10/16/1632810/16/16328 X-Rays, CTs and MRIs X-RAY CHEST ONE VIEW, PORTABLE 10/14/16 IMPRESSION: Bilateral pneumonia, located within the lower lobe on the left than the junction of the middle and upper thirds of the right lung parenchyma. The endotracheal and nasogastric tube positioning appears normal. Dictated by: Pop Ashton M.D. on 10/14/2016 at 21:51 Approved by: Pop Ashton M.D. on 10/14/2016 at 21:51 Assessment & Plan Patricia Liriano is a 56 year old [place] female with Diabetes, Dyslipidemia, Hypothyroidism, GERD admitted to [facility] for treatment of respiratory failure secondary to extensive facial swelling. Hospital Day 3 1. Acute Severe Angioedema with upper airway compromise. Present on admission Etiology of the angioedema is unclear with no exposure to WILLIE inhibitor at this time. Possible the patient has allergic or immunologic angioedema with history of some reactions to some foods. Differential diagnosis includes Acute Urticaria , Anaphylaxis, Drug or food allergies - Two prior episode of angioedema, controlled with Benadryl - continue steroids: Solu-Medrol 40 mg IV Q8 - antihistamine: Benadryl 25 mg IV Q8 - checking C4, MATT, C1 esterase inhibitor levels, pending - recommend allergy testing as outpatient - Check TSH, 0.328 - Continue Pepcid 20 mg IV push QD - Critical Care team consulted we appreciate their time and expertise 2. Upper airway compromise due to laryngeal edema. Present on admission - continue ventilator support, Critical care team will assess need for ongoing intubation today - Fentanyl and Propofol drip - daily sedation vacation and extubation trials 3. Possible Aspiration pneumonitis. Present on admission Will start antibiotics if patient spikes fever as this indicates pneumonia - Start IV Zosyn 10/16/16 - monitor closely - Blood cultures, positivce - Procalcitonin elevated - Repeat procalcitonin in AM - Repeat CXR tomorrow AM 4. Diabetes type 2 - holding Metformin - Continue Insulin drip 5. Hypothyroidism - continue Levothyroxine 137 mcg daily 6. Hypertension - resume Losartan and Atenolol if BP stable tonight - Acetaminophen as needed for mild pain/fever/headache - Bowel regimen as needed - Antiemetic as needed Patient admitted under inpatient status with expected length of stay > 2 midnights for severity of present symptoms, complexities of treatment plan and risk for adverse event . VTE Mechanical Devices: Intermittant Pneumatic CD Resuscitation Status: CPR: Attempt Resuscitation Attending Statement The patient was seen and examined together with Dr. Ríos on 10-16-16 and I agree with the history, exam and plan as outlined in the note above. TAMMIE RÍOS DO Oct 16, 2016 07:30 Shahram Justice MD Oct 17, 2016 08:12
[2016-10-16] MEDS ORDERED: Glucose 40% Oral Gel 15 Gm Tube PO PRN (14:40)
[2016-10-16] MEDS ORDERED: Insulin Human REGular Inj 100 UNIT in 0.9% Sodium Chloride-Pha MIX 100 ML IV SCH (14:49)
--- NOTE | 2016-10-16 15:24 | NUR ---
Evaluation completed. Rec: NPO with Sips H20/ice chips ok for comfort. RFID MANAGER to follow. Please go to "Notes" then click on "Assessments and Notes" (bottom left corner of screen). Then select appropriate discipline tab on top of screen.
--- NOTE | 2016-10-16 15:26 | NUR ---
1210 Pt. extubated to 100% Cool aerosol. 1400-pt on 2 lpm NC. Sats 95%/82/18. Resting comfortably. Will continue to monitor as indicated.
[2016-10-16] MEDS: MethylprednisoLONE Sodium Succinate 40 mg/mL Inj IVPUSH SCH (16:46)
[2016-10-16] MEDS ORDERED: Insulin LISPRO 300 Unit/3 mL Inj SUBQ SCH (17:30)
--- NOTE | 2016-10-16 18:08 | NUR ---
Respiratory/extubation Pt extubated at 1210, did really well on mask so switched to NC per MD, has been on 2L NC sats in high 90s, RR in the high teens up to mid 20s. A&O x3, family at bedside. Pt denies any pain, nausea or vomiting. Sips and chips per ST recommendations. Frequent rounding, insulin gtt protocol and skin care continue.
[2016-10-16] MEDS: Piperacillin-Tazo 3.375 Gm Inj 3.375 GM in Dextrose 5% Minibag Plus 50 ML IV SCH (20:32)
[2016-10-17] VITALS (7 sets, daily range): BP systolic 140–174; BP diastolic 64–80; PULSE 70–77; RESP 18–20; O2SAT 92–96
[2016-10-17] MEDS: Dextrose 5% Lactated Ringer's 1,000 ML IV SCH ×2 (00:15→11:04)
[2016-10-17] MEDS: Chlorhexidine 0.12% 15 mL Oral Solution MT SCH ×3 (00:29→07:23)
[2016-10-17] MEDS: MethylprednisoLONE Sodium Succinate 40 mg/mL Inj IVPUSH SCH ×2 (00:29→08:23)
[2016-10-17] MEDS: Heparin 5,000 Unit/mL Inj SUBQ SCH ×3 (00:29→17:58)
[2016-10-17 03:19] LABS: BASOPHILS % (AUTO) 0.1 % (0-3); EOSINOPHILS % (AUTO) 0 % (0-5); MONOCYTES % (AUTO) 5.5 % (4-12); Mean Corpuscular Hemoglobin 26.7 pg (27.0-35.0); Mean Corpuscular Volume 82.2 fL (81-100); Platelet Count 236 bil/L (150-400)
[2016-10-17] MEDS: 0.9% Sodium Chloride 1,000 ML IV SCH ×2 (05:23→11:41)
[2016-10-17] MEDS: Piperacillin-Tazo 3.375 Gm Inj 3.375 GM in Dextrose 5% Minibag Plus 50 ML IV SCH ×2 (08:24→20:59)
[2016-10-17] MEDS: Famotidine Inj 20 MG in IV Premix 1 EACH IV SCH (08:42)
--- NOTE | 2016-10-17 09:14 | NUR ---
Social Work Note: Screen Note/Discharge Planning Data& Assessment:Patricia Liriano is a 56 year old female admitted on 10/14/2016 for angio and edema. Pt has [facility] insurance coverage and goes to [facility] in [place] for primary care. Pt lives with her family in [place] and is independent with basic ADL's at baseline. SW met with pt and bedside to inquire about preferred pharmacy to run a prescription for an EPI pen per MD request. Pt preferred pharmacy is [place] [facility], script faxed for cost. SW to await phone call back from pharmacy about the cost for pt. Pt and pt deny any other needs at this time. SW to continue to follow if any needs arise. Plan: Anticipated discharge home via POV when medically ready. SW to await phone call back from pharmacy about the cost for pt. Pt and pt deny any other needs at this time. SW to continue to follow if any needs arise. ANALI Doan
--- NOTE | 2016-10-17 09:21 | PCM.PNMED ---
Subjective Date of Service Oct 17, 2016 Subjective Doing well after extubation yesterday Alert and comfortable. at bedside. Swallowed thin liquids without cough, choking. Afeb, Cough nonproductive Exam Vital Signs Vital Sign - Last Date Time Temp Pulse Resp B/P Pulse Ox O2 Delivery O2 Flow Rate FiO2 10/17/16 08:01 36.7 77 19 154/68 95 Nasal Cannula 2.00 10/16/16 12:00 40 Intake and Output 10/16/16 10/16/16 10/17/16 Cumulative From/Thru 15:00 23:00 07:00 10/14/16 19:56 - 10/17/16 05:58 Intake Total 1485 ml 1227 ml 8083 ml Output Total 2000 ml 3300 ml 7225 ml Balance -515 ml -2073 ml 858 ml Intake Oral 0 ml IV Total 1485 ml 1227 ml 8083 ml Output Urine Total 2000 ml 3300 ml 6875 ml Gastric Drainage Total 350 ml Exam Lungs CTA CV RRR, distant HTs, no m/g/r Ext Warm, tr edema Lab and Diagnostics Result Diagram: 10/17/16 0304 10/17/16 0304 X-Rays, CTs and MRIs X-RAY CHEST ONE VIEW, PORTABLE 10/14/16 IMPRESSION: Bilateral pneumonia, located within the lower lobe on the left than the junction of the middle and upper thirds of the right lung parenchyma. The endotracheal and nasogastric tube positioning appears normal. Dictated by: Pop Ashton M.D. on 10/14/2016 at 21:51 Approved by: Pop Ashton M.D. on 10/14/2016 at 21:51 Assessment & Plan PULMONARY PROGRESS NOTE Angioedema. With no pruritus or urticaria this is likely not histaminergic. No clear precipitant by history. REC Home today Outpatient followup with Allergy / Immunology. F/U C1-inh level, C4 Avoid all NSAIDS BID nonsedating anthistamine PRN 40 mg prednisone and 50 mg diphenhydramine at first sign of swelling PRN epinephrine auto injector at first sign of dyspnea VTE Mechanical Devices: Intermittant Pneumatic CD Resuscitation Status: CPR: Attempt Resuscitation Cj Livingston MD Oct 17, 2016 09:21
--- NOTE | 2016-10-17 09:46 | PCM.PNMED ---
Subjective Date of Service Oct 17, 2016 Subjective PULMONARY PROGRESS NOTE Overnight: No acute events reported. Today: Denied any SOB, CP, generalized pain. States with a smile she is tired. No pain or tenderness along neck, does not report difficulty swallowing or sore throat. Exam Vital Signs Vital Sign - Last Date Time Temp Pulse Resp B/P Pulse Ox O2 Delivery O2 Flow Rate FiO2 10/17/16 04:30 37.1 72 18 157/68 95 Nasal Cannula 2.00 10/16/16 12:00 40 Intake and Output 10/16/16 10/16/16 10/17/16 Cumulative From/Thru 15:00 23:00 07:00 10/14/16 19:56 - 10/17/16 05:58 Intake Total 1485 ml 1227 ml 8083 ml Output Total 2000 ml 3300 ml 7225 ml Balance -515 ml -2073 ml 858 ml Intake Oral 0 ml IV Total 1485 ml 1227 ml 8083 ml Output Urine Total 2000 ml 3300 ml 6875 ml Gastric Drainage Total 350 ml Exam General: Alert, responsive; able to respond to questioning HENT: Atraumatic; sclera anicteric; mucus membranes moist Neck: Soft, nontender, trachea midline; no swelling noted Cardiac: Regular rate and rhythm; no murmurs appreciated Respiratory: Adequate air flow all shields; no crackles or wheeze appreciated Abdomen: Soft, nontender, nondistended Extremities: BLLE without edema; trace BLUE edema, resolving Neuro: Grossly intact CNII-XII; facial expressions symmetric Psych: Appropriate mood, affect, and responses to questioning; good insight and judgment Lab and Diagnostics Result Diagram: 10/17/16 0304 10/17/16 0304 X-Rays, CTs and MRIs X-RAY CHEST ONE VIEW, PORTABLE 10/14/16 IMPRESSION: Bilateral pneumonia, located within the lower lobe on the left than the junction of the middle and upper thirds of the right lung parenchyma. The endotracheal and nasogastric tube positioning appears normal. Dictated by: Pop Ashton M.D. on 10/14/2016 at 21:51 Approved by: Pop Ashton M.D. on 10/14/2016 at 21:51 Assessment & Plan PULMONARY PROGRESS NOTE Patient was successfully extubated 10/[address] performed swallow eval, current recs include NPO except sips and chips. Assessments: - Acute respiratory failure secondary to angioedema; resolved - Angioedema secondary to anaphylactic reaction to unknown substance; resolved Plan: - Wean O2 - Mobilize and assess O2 saturations - Recommend reduction in steroids; decrease to prednisone 40mg daily for next 3 days following DC of Solu-Medrol - Recommend continuing antihistamine until DC; utilize benadryl or zyrtec, if available in our pharmacy - ST following along, appreciate time and recommendations for swallowing safety - Rx was provided to MISSIONARY COORDINATOR 10/16 to assess insurance coverage for epi-pen - Recommend avoidance of NSAIDs, including ASA At DC, recommend patient have follow up appointment with PCP, and department specialist. Recommend daily antihistamine, such as Zyrtec, twice daily. Also recommend she receive Rx benadryl 25mg po tabs, prednisone 40mg po tabs, and epi -pen if covered by insurance; prednisone 40mg x1 + benadryl 50mg at onset of allergic reaction; epi-pen to be utilized for any sign of respiratory compromise , with prompt call to 9-1-1. These medications should be carried at all times. Recommend outpatient follow up with allergy/immunology specialists as soon as available, in addition to PCP hospital FU appt. From pulmonology standpoint, patient airway is stable.Recommend continued work with ST, and DC pending medical stability per primary team. Thank you for this interesting consult, we will happily follow along with you. Total time: 45 minutes Pain Evaluation: Adequate Pain Control GI Prophylaxis: H2 jose VTE Prophylaxis: Sub-Q Heparin (Unfractionated) VTE Mechanical Devices: Intermittant Pneumatic CD Resuscitation Status: CPR: Attempt Resuscitation Ninfa Lala DO Oct 17, 2016 08:04
--- NOTE | 2016-10-17 09:47 | DRSVH ---
PROCEDURE: X-RAY CHEST ONE VIEW, PORTABLE ([id number]) INDICATIONS: POST EXTUBATION TECHNIQUE: One view of the chest was acquired. COMPARISON: [facility], CR, XR CHEST 1VW (PORTABLE), 10/16/2016, 5:09. FINDINGS: Surgical changes and devices: Interval removal of nasogastric and endotracheal tubes. Lungs and pleura: Lung volumes have increased and basilar consolidation has nearly resolved. No pneu mothorax. Mediastinum: Mediastinal contours appear normal. Heart size is normal. Bones and chest wall: No suspicious bony lesions. Overlying soft tissues appear unremarkable. IMPRESSION: Nearly resolved basilar consolidation. Dictated by: Brandt Wiggins RRA Interpreted: Sudha Fernando MD on 10/17/2016 at 9:46 Transcribed by: MANJULA on 10/17/2016 at 9:46 Approved by: Sudha Fernando MD, PhD on 10/17/2016 at 16:56
--- NOTE | 2016-10-17 11:16 | NUR ---
NUTRITION FOLLOW-UP Assess: 56 YO F admitted to CCU for angioedema requiring intubation. Pt extubated 10/16. ST evaluated and recommended NPO w/ ice chips. PMHX: TIA, hypothyroid, type 2 DM, dyslipidemia, Wolf's palsy, depression, sleep apnea, HTN, GERD. DIET: NPO. LABS: Cr 0.52, Glu 141 MEDICATIONS: Reviewed. Solu-medrol GI: No BM noted. SKIN: No pressure injuries WEIGHT: 87.0 kg, BMI 34.0 kg/m2. Admit wt: 86.6 kg ESTIMATED NEEDS: VENT/BMI Calories: 4423-9896 kcal/day (20-22 kcal/kg BW) Protein: 70-85 g/day (1.2-15 g/kg IBW) NUTRITION DIAGNOSIS: 1) Inadequate oral intake related to decreased ability to consume sufficient energy as evidenced by NPO/Vent status.---PERSISTS, NPO per ST INTERVENTION: 1) Consider nutrition support w/ Jevity 1.5 via DobHoff, starting at 10 ml/hr. Once pt tolerating, advance 10 ml q 6 hrs to goal rate of 55 ml/hr to provide 1897 kcal/d, 80 g/d protein, and 1201 ml/d H2O. *If no IVF, flush 115 ml q 3 hrs to provide 1881 ml/d H2O MONITOR/EVALUATE: NPO status, labs, nutrition support, GI/nutrition status. Follow per high nutrition risk guidelines.
[2016-10-17] MEDS ORDERED: Glucose 40% Oral Gel 15 Gm Tube PO PRN (11:25)
--- NOTE | 2016-10-17 11:38 | PCM.PNMED ---
Subjective Date of Service Oct 17, 2016 Subjective Patricia Liriano is a 56 year old [place] female with Diabetes, Dyslipidemia, Hypothyroidism, GERD admitted to [facility] for treatment of department extensive facial swelling and respiratory failure requiring intubation 10/14/16. Successfully extubated 10/16/16 without complications. Hospital Day 4 Overnight: No complaints overnight. Nursing reported no events overnight. Today: Patient reports that she has chest discomfort, described as a deep soreness, no aggravating factors, improvement with pain medications. Patient has not had a bowel movement,states she has a dry cough. She denies fever, chills, nausea, vomiting. ROS negative except as mentioned above Exam Vital Signs Vital Sign - Last Date Time Temp Pulse Resp B/P Pulse Ox O2 Delivery O2 Flow Rate FiO2 10/17/16 04:30 37.1 72 18 157/68 95 Nasal Cannula 2.00 10/16/16 12:00 40 Intake and Output 10/16/16 10/16/16 10/17/16 Cumulative From/Thru 15:00 23:00 07:00 10/14/16 19:56 - 10/17/16 05:58 Intake Total 1485 ml 1227 ml 8083 ml Output Total 2000 ml 3300 ml 7225 ml Balance -515 ml -2073 ml 858 ml Intake Oral 0 ml IV Total 1485 ml 1227 ml 8083 ml Output Urine Total 2000 ml 3300 ml 6875 ml Gastric Drainage Total 350 ml Exam General: Alert and oriented x 3, Cooperative, No acute Distress Eyes: PERRLA, Scleral Anicteric. Swollen Eyelids Mouth: Mouth Normal, Mucous Membranes Moist/[place]. Lips swollen improved Neck: Supple, moderate edema, no Thyromegaly, trachea central. Edema of neck improved from yesterday. Chest & Lungs: Clear to auscultation & percussion, No adventitious breath sounds, no crackles, no wheeze Cardiovascular: Normal S1, Normal S2, No Murmurs/Rubs/Gallops, Regular Rate/ Rhythm, (No JVD, no peripheral edema) Pulses: Radial (present and equal), Dorsalis Pedi (present and equal) Abdomen: Soft, Non-tender, Non-distended, Normoactive bowel tones. Musculoskeletal: Unremarkable. Normal range of motion, no swollen or erythematous joints Extremities: Edema of hands b/l improving, no cyanosis, no clubbing. Skin: No rashes. Warm and dry, no erythematous areas or rashes Neurological: Grossly neurologically intact, sedated Lymphatic: Lymph nodes Cervical and Axillary not palpable IVs and Medications Medications Reviewed: Medications were reviewed in detail Lab and Diagnostics Result Diagram: 10/17/16 0304 10/17/16 0304 X-Rays, CTs and MRIs X-RAY CHEST ONE VIEW, PORTABLE 10/14/16 IMPRESSION: Bilateral pneumonia, located within the lower lobe on the left than the junction of the middle and upper thirds of the right lung parenchyma. The endotracheal and nasogastric tube positioning appears normal. Dictated by: Pop Ashton M.D. on 10/14/2016 at 21:51 Approved by: Pop Ashton M.D. on 10/14/2016 at 21:51 X-RAY CHEST ONE VIEW, PORTABLE 10/17/16 IMPRESSION: Nearly resolved basilar consolidation. Dictated by: Brandt PERSON Interpreted: Sudha Fernando MD on 10/17/2016 at 9:46 Transcribed by: MANJULA on 10/17/2016 at 9:46 Assessment & Plan Patricia Liriano is a 56 year old [place] female with Diabetes, Dyslipidemia, Hypothyroidism, GERD admitted to [facility] for treatment of respiratory failure secondary to extensive facial swelling. Hospital Day 3 1. Acute Severe Angioedema with upper airway compromise. Improving Etiology of the angioedema is unclear with no exposure to WILLIE inhibitor at this time. Possible the patient has allergic or immunologic angioedema with history of some reactions to some foods. Differential diagnosis includes Acute Urticaria , Anaphylaxis, Drug or food allergies - Two prior episode of angioedema, controlled with Benadryl - Discontinue Solu-Medrol 40 mg IV Q8 - Start Prednisone 40 mg PO QD - Discontinue Benadryl 25 mg IV Q8 - Start home antihistamine: Zyrtec PO QD - checking C4, MATT, C1 esterase inhibitor levels, negative - recommend allergy testing as outpatient - Check TSH, 0.328 - Continue Pepcid 20 mg IV push QD - Counseled patient on avoiding NSAIDs, Handout given - Recommend patient follow up with [facility] as outpatient - Critical Care team consulted we appreciate their time and expertise 4. Possible Aspiration pneumonitis.Improving - Antibiotics started 10/16/16 due to pleural effusion noted on CXR, risk of aspiration pneumonia, and fever overnight 10/15/16 - CXR 10/17/16 shows resolution of effusions - Start IV Zosyn 10/16/16, Stop 10/18/16 - monitor closely - Blood cultures, positive, Gram +, coagulase negative, - Procalcitonin trending down - Repeat procalcitonin in AM 3. Upper airway compromise due to laryngeal edema. Resolved - Patient successfully extubated and discontinued ventilator support 10/15/16 with anesthesia present and without complications, - Discontinued Fentanyl and Propofol drip 10/15/16 4. Diabetes type 2, chronic, present on admission, ongoing - holding Metformin - Discontinue Insulin drip, advance diet per ST - Start medium dose insulin correctional scale - Dose Lantus by weight 5. Hypothyroidism, chronic, - continue home dose Levothyroxine 137 mcg PO daily 6. Hypertension, chronic - resume Losartan and Atenolol if BP stable tonight - Acetaminophen as needed for mild pain/fever/headache - Bowel regimen as needed - Antiemetic as needed High Risk medications: None Disposition: patient likely discharge to home upon resolution of angioedema and upper airway compromise Pain Evaluation: Adequate Pain Control VTE Mechanical Devices: Intermittant Pneumatic CD Resuscitation Status: CPR: Attempt Resuscitation Attending Statement The patient was seen and examined together with Dr. Ríos on 10-17-16 and I agree with the history, exam and plan as outlined in the note above. TAMMIE RÍOS DO Oct 17, 2016 06:32 Shahram Justice MD Oct 18, 2016 13:29
[2016-10-17] MEDS: Insulin LISPRO 300 Unit/3 mL Inj SUBQ SCH ×3 (12:00→20:08)
[2016-10-17 12:08] LABS: C1 Esterase Inhibitor, Func 87 (.)
--- NOTE | 2016-10-17 15:27 | NUR ---
DOWNGRADE TO PCC Patient stable overnight, following extubation to 2L NC. All vitals stable. Received orders for patient to transfer to PCC w/ tele. Insulin gtt discontinued, patient transitioned to Lispro w/ meals. Blood sugars have remained stable, but will continue to monitor. PT mani requested, but no order placed so far, patient was able to transfer from bed to wheelchair w/ 1PA, slightly weak. Report given to Jennifer Trimble RN, who will be assuming care of patient following transfer to room 2022.
[2016-10-17] MEDS ORDERED: Insulin LISPRO 300 Unit/3 mL Inj SUBQ ONE (20:15)
--- NOTE | 2016-10-17 20:45 | NUR ---
shower pt requesting shower, order to remove tele for shower, daughter in room and assisted. pt just received IV Benadryl and c/o a little dizziness when she first stood up. pt took shower and back in bed. she stated dizziness passed.
[2016-10-17] MEDS ORDERED: Insulin GLARgine 100 Unit/mL Syringe SUBQ SCH (21:00)
[2016-10-18 00:01] VITALS: BP 160/75; PULSE 62; RESP 17; O2SAT 94
[2016-10-18] MEDS: Heparin 5,000 Unit/mL Inj SUBQ SCH ×3 (00:04→16:30)
[2016-10-18 03:45] VITALS: BP 161/82; PULSE 59; RESP 17; O2SAT 92
--- NOTE | 2016-10-18 04:05 | NUR ---
blood glucose pt on sub q insulin and eating, D5LR still running at 100cc/hr, pt tolerating PO well, BG 259 called received order to give 5units lispro and to stop IVF, gave, at 2230 BG 187 gave 20units Lantus subq for HS does and at 0330 BG 142, pts frank draining well.
[2016-10-18 05:35] VITALS: PULSE 75
[2016-10-18 05:46] LABS: BASOPHILS % (AUTO) 0.1 % (0-3); EOSINOPHILS % (AUTO) 0.1 % (0-5); MONOCYTES % (AUTO) 9.3 % (4-12); Mean Corpuscular Hemoglobin 26.8 pg (27.0-35.0); Mean Corpuscular Volume 81.7 fL (81-100); NEUTROPHILS % (AUTO) 69.3 % (40-74); Platelet Count 241 bil/L (150-400)
[2016-10-18 08:00] VITALS: PULSE 76
[2016-10-18 08:30] VITALS: BP 151/86; PULSE 72; RESP 14; O2SAT 92
[2016-10-18] MEDS: Piperacillin-Tazo 3.375 Gm Inj 3.375 GM in Dextrose 5% Minibag Plus 50 ML IV SCH (08:30)
[2016-10-18] MEDS ORDERED: predniSONE 20 mg Tablet PO SCH (08:30)
--- NOTE | 2016-10-18 10:20 | NUR ---
Called [facility] to follow up on prescription faxed last night for cost check. Patient did not have updated insurance information on file at the pharmacy. Gave insurance information to pharmacy. She has found this patient with our information and the prescription plan is [facility]. There is no out of pocket cost for the patient. Updated SUPERVISOR [employer]
[2016-10-18] MEDS: Insulin LISPRO 300 Unit/3 mL Inj SUBQ SCH ×2 (10:52→12:03)
[2016-10-18 11:53] VITALS: BP 144/90; PULSE 67; RESP 18; O2SAT 97
[2016-10-18] MEDS ORDERED: Amoxicillin-Clav 875-125 mg Tablet PO SCH (15:00)
--- NOTE | 2016-10-18 15:06 | NUR ---
Social Work: Discharge D: Pt discussed in morning rounds. Pt is medically stable for discharge home today. Pt has remained I during admission. MD requesting pt's OOP expense for EpiPen. HOME SPECIALIST contacted pt's preferred pharmacy who states pt's prescriptions are filled through [facility] (fax [phone]) and that the pt has no out of pocket expense for this medication. AUTOMATIC CAR WASH ATTENDANT updated MD who is writing orders for pt. Per MD request, AUTOMATIC CAR WASH ATTENDANT faxed prescription to [facility] at [phone]. Pt has original copy. A: Pt who is I at baseline. P: Anticipate pt to discharge home via POV today. No other sw needs or barriers identified at this time. ANALI Gallardo
--- NOTE | 2016-10-18 15:40 | PCM.DIMED ---
Discharge Instructions Date of Service Oct 18, 2016 Dates of Hospitalization Oct 14, 2016 at 21:43 Discharge Diagnosis Discharge Diagnosis 1. Acute Severe Angioedema with upper airway compromise.Resolved 2. Hypoxic Respiratory Failure 3. Possible Aspiration pneumonitis.Improving 4. Diabetes type 2, improving 5. Hypothyroidism, chronic, 6. Hypertension, chronic Medication Instructions Please refer to handout on NSAID medications to avoid Stop taking your Losartan as this can cause angioedema Diet Diabetic Activity Limited until seen by PCP Call your provider Fever or Chills, Shortness of breath, Bleeding, Chest pain, Vomitting, Excessive diarrhea, Weakness (unilateral), Other (If your experience similar symptoms to what brought you to the hospital this time please seek emergency care immediately) Patient Instructions Please Follow up with your PCP by this Saturday10/22/16 Recommend follow up with Allergy and Immunology, - recommend allergy testing as outpatient Stop taking Losartan as this can cause angioedema Resume Atenolol Your blood pressure has been elevated during your visit, Start Chlorthalidone once daily, work with your PCP to optimize blood pressure medications Obtain EpiPen, prescription given this is used to be in emergency situations where you experience sever throat, face swelling that causes you to have difficulty breathing. Continue Metformin Continue home antihistamine: Zyrtec Continue Pepcid 20 mg Continue Augmentin 850 mg twice daily for 5 more days prescription given Follow-up plan Please Follow up with your PCP by this Saturday10/22/16 Recommend follow up with Allergy and Immunology Follow-up Provider: [facility] Follow-up with PCP in: 1 week TAMMIE RÍOS DO Oct 18, 2016 15:35
[2016-10-18] MEDS ORDERED: ATEN100T PO (15:42)
[2016-10-18] MEDS ORDERED: AGM875T PO (15:42)
[2016-10-18] MEDS ORDERED: HYG25 PO (15:44)
--- NOTE | 2016-10-18 18:14 | NUR ---
DISCHARGE DISCHARGE NOTE: Pt was discharged and left with her daughter at 1738. She and her daughter walked down and left in daughter's private vehicle. Daughter was present during discharge process and involved in patient education. Both mother and daughter understood education regarding new medications and follow up appointments. Pt left with all of her personal belongings and discharge paperwork.
--- NOTE | 2016-10-18 19:06 | PCM.DC.MED ---
Discharge Summary Date of Service Oct 18, 2016 Dates of Hospitalization Date of Hospital Admission Oct 14, 2016 at 21:43 Date of Discharge: Oct 18, 2016 Providers: Admitting Physician: Rey Gudino MD Primary Care Physician: [facility] FangnonLiborionikki Attending Physician: Rey Gudino MD Diagnosis at Time of Discharge Diagnosis at Time of Discharge 1. Acute Severe Angioedema with upper airway compromise.Resolved 2. Hypoxic Respiratory Failure 3. Possible Aspiration pneumonitis.Improving 4. Diabetes type 2, improving 5. Hypothyroidism, chronic, 6. Hypertension, chronic Consultations Pulmonology Procedures XRay, CTs & MRIs X-RAY CHEST ONE VIEW, PORTABLE 10/14/16 IMPRESSION: Bilateral pneumonia, located within the lower lobe on the left than the junction of the middle and upper thirds of the right lung parenchyma. The endotracheal and nasogastric tube positioning appears normal. Dictated by: Pop Ashton M.D. on 10/14/2016 at 21:51 Approved by: Pop Ashton M.D. on 10/14/2016 at 21:51 X-RAY CHEST ONE VIEW, PORTABLE 10/17/16 IMPRESSION: Nearly resolved basilar consolidation. Dictated by: Brandt Wiggins RR Interpreted: Sudha Fernando MD on 10/17/2016 at 9:46 Transcribed by: MANJULA on 10/17/2016 at 9:46 Brief History Patricia Liriano is a 56 year old [place] female with Diabetes, Dyslipidemia, Hypothyroidism, GERD who presents to [facility] Emergency department with concerns for extensive facial swelling that began around 16:00. She reports difficulty talking and swallowing. Her family member reports her voice sounding different than her baseline. Daughter gave the history. Daughter states the patient every once in awhile would have some swelling due to certain foods that she eats but usually takes a allergy medications and it goes away. Patient took the medications twice, but had no effects. Pt denies taking any new medications, or being exposed to anything that she knows she is allergic to. She reports mild difficulty breathing. Pt reports this happening one other time in the past. Daughter reported patient ate some Oranges and cabbage with some meat inside. Patient has eaten these food before. Patient takes several medications but not on WILLIE inhibitor. Daughter mentioned the patient may have seen a doctor to figure what she is allergic too. Prior prior angioedema requiring hospitalization Patient noted to have respiratory compromise and Dr Adnrade recruited the aid of Anesthesia and intubated patient. Patient will be transferred to ICU on the ventilator Hospital Course Patricia Liriano is a 56 year old [place] female with Diabetes, Dyslipidemia, Hypothyroidism, GERD admitted to [facility] for treatment of respiratory failure secondary to extensive facial swelling. Hospital Day 3 1. Acute Severe Angioedema with upper airway compromise. Resolved Etiology of the angioedema is unclear with no exposure to WILLIE inhibitor at this time. Possible the patient has allergic or immunologic angioedema with history of some reactions to some foods. Differential diagnosis includes Acute Urticaria , Anaphylaxis, Drug or food allergies Patient had Two prior episodes of angioedema, controlled with Benadryl - Stop Losartan as this can be a cause of angioedema - Discontinued Solu-Medrol 40 mg IV Q8 10/17/16 - Start Prednisone 40 mg PO QD 10/16/16, discontinued 10/18/16 patient - Discontinue Benadryl 25 mg IV Q8 - Started home antihistamine: Zyrtec PO QD 10/16/16 continue at discharge - checked C4, MATT, C1 esterase inhibitor levels, negative - recommend allergy testing as outpatient - Checked TSH, 0.328 - Continue Pepcid 20 mg PO after discharge - Counseled patient on avoiding NSAIDs, Handout given - Recommend patient follow up with [facility] as outpatient - Obtain EpiPen as soon as possible prescription given at time of discharge - Critical Care team consulted we appreciate their time and expertise 2. Possible Aspiration pneumonitis. Improving - Antibiotics started 10/16/16 due to pleural effusion noted on CXR, risk of aspiration pneumonia, and fever overnight 10/15/16 - CXR 10/17/16 shows resolution of effusions - Start IV Zosyn 10/16/16, Stoped 10/18/16 - Blood cultures, positive, Gram +, coagulase negative, - Procalcitonin trended down during hospital course - Antibiotics converted to Augmentin 875 mg BID for 5 days patient observed for allergic reaction prior to discharge 3. Upper airway compromise due to laryngeal edema. Resolved - Patient successfully extubated and discontinued ventilator support 10/15/16 with anesthesia present and without complications, - Discontinued Fentanyl and Propofol drip 10/15/16 4. Diabetes type 2, chronic, present on admission, ongoing - holding Metformin, continue after discharge - Discontinued Insulin drip, advance diet per ST 10/16/16 - Start medium dose insulin correctional scale discontinued 10/17/16 5. Hypothyroidism, chronic, - continue home dose Levothyroxine 137 mcg PO daily 6. Hypertension, chronic - BP elevated during hospital course - Stop Losartan as this can be a cause of angioedema - resume Atenolol 10/18/16 - Start Chlorthalidone 25 MG PO QD 10/18/16 - Monitor BP and discuss optimization of medications with PCP Exam Vital Signs (Last) Date Time Temp Pulse Resp B/P Pulse Ox O2 Delivery O2 Flow Rate FiO2 10/18/16 11:53 36.8 67 18 144/90 97 Room Air 10/17/16 11:21 2.00 10/16/16 12:00 40 Exam General: Alert and oriented, Cooperative, No acute Distress Eyes: PERRLA, Scleral Anicteric. Swollen Eyelids Mouth: Mouth Normal, Mucous Membranes Moist/Seat Pleasant. Lips swollen improved Neck: Supple, moderate edema, no Thyromegaly, trachea central. Edema of neck improved from yesterday. Chest & Lungs: Clear to auscultation & percussion, No adventitious breath sounds, no crackles, no wheeze Cardiovascular: Normal S1, Normal S2, No Murmurs/Rubs/Gallops, Regular Rate/ Rhythm, (No JVD, no peripheral edema) Pulses: Radial (present and equal), Dorsalis Pedi (present and equal) Abdomen: Soft, Non-tender, Non-distended, Normoactive bowel tones. Musculoskeletal: Unremarkable. Normal range of motion, no swollen or erythematous joints Extremities: Edema of hands b/l improving, no cyanosis, no clubbing. Skin: No rashes. Warm and dry, no erythematous areas or rashes Neurological: Grossly neurologically intact, sedated Lymphatic: Lymph nodes Cervical and Axillary not palpable Test 10/14/16 20:15 10/14/16 22:02 10/15/16 07:04 10/15/16 07:32 Hold Purple Top Tube Received (Received) Hold Blue Top Tube Received (Received) Hold [place] Top Tube Received (Received) Functional C1 Esterase Inhibitor 87 (.) Complement C4 15mg/dL (14-44) Hemoglobin A1c 7.7% (4.8-5.6) Thyroid Stimulating Hormone (TSH) 0.328uIU/mL (0.450-4.500) Anti-Nuclear Antibody Screen Negative (Negative) Urine Color Straw (YELLOW) Urine Appearance Hazy (CLEAR,HAZY) Urine pH 5.5 (5.0-8.0) Urine Specific [place] 1.020 (1.003-1.035) Urine Protein Negativemg/dL (NEG,TRACE) Urine Glucose (UA) Negativemg/dL (NEGATIVE) Urine Ketones 15mg/dL (NEGATIVE) Urine Occult Blood Negative (NEGATIVE) Urine Nitrite Negative (NEGATIVE) Urine Bilirubin Negative (NEGATIVE) Urine Urobilinogen Normalmg/dL (NORMAL) Urine Leukocyte Esterase Negative (NEGATIVE) Urine RBC 0-2/hpf (0-2) Urine WBC 0-5/hpf (0-5) Urine Epithelial Cells Occasional/hpf (NONE-MOD) Urine Crystals Ammonium biurates (NONE Urine Bacteria None/hpf (NONE-FEW) Urine Hyaline Casts None/lpf (NONE) Urine Granular Casts None seen (NONE SEEN) Urine Waxy Casts None seen (NONE SEEN) Urine Red Blood Cell Casts None seen (NONE SEEN) Urine White Blood Cell Casts None seen (NONE SEEN) Urine Mucus None seen (None Seen) Urine Trichomonas None seen (NONE SEEN) Urine Yeast None (NONE SEEN) Urinalysis Comment None Urine Culture Reflexed Not indicated Test 10/16/16 15:20 10/17/16 03:04 10/18/16 04:45 Immunoglobulin E 65IU/mL (0-100) Lactic Acid Level 1.7mmol/L (0.4-2.0) Procalcitonin 0.06ng/mL (See Comment) White Blood Count 14.1th/mm3 (3.8-10.1) Red Blood Count 4.71mil/mm3 (3.90-5.20) Hemoglobin 12.6g/dL (12.0-15.6) Hematocrit 38.5% (35.0-46.0) Mean Corpuscular Volume 81.7fL (81-100) Mean Corpuscular Hemoglobin 26.8pg (27.0-35.0) Mean Corpuscular Hemoglobin Concent 32.7% (32.0-37.0) Red Cell Distribution Width 14.0% (12.3-15.4) Platelet Count 241bil/L (150-400) Neutrophils (%) (Auto) 69.3% (40-74) Lymphocytes (%) (Auto) 19.4% (14-46) Monocytes (%) (Auto) 9.3% (4-12) Eosinophils (%) (Auto) 0.1% (0-5) Basophils (%) (Auto) 0.1% (0-3) Sodium Level 139mEq/L (134-144) Potassium Level 3.7mEq/L (3.5-5.2) Chloride Level 97mEq/L (97-108) Carbon Dioxide Level 26mmol/L (18-29) Blood Urea Nitrogen 19mg/dL (6-24) Creatinine 0.62mg/dL (0.57-1.00) Estimat Glomerular Filtration Rate 142mL/min (>59) Glucose Level 151mg/dL (60-99) Calcium Level 8.7mg/dL (8.5-10.1) Total Bilirubin 0.5mg/dL (0.0-1.2) Aspartate Amino Transf (AST/SGOT) 16U/L (0-50) Alanine Aminotransferase (ALT/SGPT) 26U/L (0-32) Alkaline Phosphatase 65U/L (25-150) Total Protein 6.7g/dL (6.4-8.4) Albumin 3.8g/dL (3.4-5.0) Discharge Medications Discharge Medications ([cortisporin 3.5-10K]) 4 GTTS RIGHT_EAR QID (Reported) Amlodipine (Amlodipine) 10 Mg Tablet 10 MG PO DAILY (Reported) Amoxicillin/Clav K 875-125 mg (Amoxicillin/Clav K 875-125 mg) 875 Mg Tab 1 TAB PO BID Prescribed by: TAMMIE RÍOS DO Aspirin (Aspirin) 81 Mg Tablet 81 MG PO DAILY (Reported) Atenolol (Atenolol) 100 Mg Tablet 100 MG PO DAILY Prescribed by: TAMMIE RÍOS DO Atorvastatin (Lipitor) 40 Mg Tablet 40 MG PO HS (Reported) Chlorthalidone (Chlorthalidone) 25 Mg Tablet 25 MG PO DAILY Prescribed by: TAMMIE RÍOS DO Clotrimazole 1% (Gyne-Lotrimin 7 1%) 45 Gm Cream.appl 1 APPLIC TOPICAL BID ( Reported) Levothyroxine (Levothyroxine) 137 Mcg Tablet 137 MCG PO DAILY (Reported) Metformin (Metformin) 850 Mg Tablet 850 MG PO BID (Reported) As needed Cetirizine HCl (Allergy Relief) 1 Mg/Ml Solution 1 MG PO PRN allergy (Reported) Additional med instructions Please refer to handout on NSAID medications to avoid Stop taking your Losartan as this can cause angioedema Obtain EpiPen as soon as possible prescription given Followup Plan Disposition: discharge to home with follow up with PCP 10/30/16 scheduled appointment.Earlier , by this Saturday recommended Follow-up plan Please Follow up with your PCP by this Saturday10/22/16 Recommend follow up with Allergy and Immunology Discharge Diet: Diabetic Discharge Activity: Limited until seen by PCP Patient Instructions Please Follow up with your PCP by this Saturday10/22/16 Recommend follow up with Allergy and Immunology, - recommend allergy testing as outpatient Stop taking Losartan as this can cause angioedema Resume Atenolol Your blood pressure has been elevated during your visit, Start Chlorthalidone once daily, work with your PCP to optimize blood pressure medications Obtain EpiPen, prescription given this is used to be in emergency situations where you experience sever throat, face swelling that causes you to have difficulty breathing. Continue Metformin Continue home antihistamine: Zyrtec Continue Pepcid 20 mg Continue Augmentin 850 mg twice daily for 5 more days prescription given Follow-up Provider: [facility] Follow-up with PCP in: 1 week Attending Statement The patient was seen and examined together with Resident/House-staff on 10/18/16 and I agree with the history, exam and plan as outlined in the note above. TAMMIE RÍOS DO Oct 18, 2016 19:03 Nader Neal Oct 19, 2016 17:22
== END 2016-10-18 17:39 | disposition home or self-care (01) | DRG 811 ==
LOC: SED 19:54 → MERGE 21:43 → CCU 21:43 → PCC 10-17 09:00
PROVIDERS: ADMIT Hospitalist; ATTEND Hospitalist
PROC: 5A1945Z Respiratory Ventilation, 24-96 Consecutive Hours (ICD-10-PCS; principal; 2016-10-14)
PROC: 4A033B1 Measurement of Arterial Pressure, Peripheral, Percutaneous Approach (ICD-10-PCS; 2016-10-14)
DX: T78.3XXA Angioneurotic edema, initial encounter (principal); J96.01 Acute respiratory failure with hypoxia; J69.0 Pneumonitis due to inhalation of food and vomit; E66.01 Morbid (severe) obesity due to excess calories; E11.9 Type 2 diabetes mellitus without complications; E78.5 Hyperlipidemia, unspecified; E03.9 Hypothyroidism, unspecified; K21.9 Gastro-esophageal reflux disease without esophagitis; Z79.4 Long term (current) use of insulin